=== PATIENT | male | born 1990 | race Caucasian/White ===

== ENCOUNTER 2021-08-13 12:20 | Emergency (ER) | payer BC, SELFPAY ==
[2021-08-13 12:27] VITALS: BP 136/74; PULSE 111; RESP 20; TEMP 36.6; O2SAT 99
--- NOTE | 2021-08-13 15:50 | ED.SKABFB ---
HPI - Skin/Abscess/Foreign Bdy General Chief complaint: Skin/Abscess/Foreign Body <Jose Rolon MD - Last Filed: 08/13/21 18:40> Stated complaint: BOIL L AXILLA <Jose Rolon MD - Last Filed: 08/13/21 18:40> Time Seen by Provider: 08/13/21 14:46 <Jose Rolon MD - Last Filed: 08/13/21 18:40> Source: patient <Jose Rolon MD - Last Filed: 08/13/21 18:40> Mode of arrival: ambulatory <Jose Rolon MD - Last Filed: 08/13/21 18:40> Limitations: no limitations <Jose Rolon MD - Last Filed: 08/13/21 18:40> History of Present Illness HPI narrative: Patient is a 31-year-old male complaining of abscess on his left armpit that started 5 days ago. Patient states that he has a history of abscess in the past due to ingrown hair . Patient denies any fever or chills. <Jose Rolon MD - Last Filed: 08/13/21 18:40> Related Data Home medications: Home Medications Medication Instructions Recorded Confirmed insulin asp prt-insulin aspart 90 unit SUBCUT BID 07/26/19 03/10/21 [Novolog Mix 70-30FlexPen U-100] metformin 1,000 mg PO BID 07/26/19 03/10/21 <Jose Rolon MD - Last Filed: 08/13/21 18:40> Allergies/Adverse reactions: Allergies Allergy/AdvReac Type Severity Reaction Status Date / Time No Known Allergies Allergy Verified 08/13/21 14:38 <Jose Rolon MD - Last Filed: 08/13/21 18:40> Review of Systems Review of Systems: All systems reviewed & are unremarkable except as noted in HPI and below <Jose Rolon MD - Last Filed: 08/13/21 18:40> Constitutional: Constitutional: Denies body ache(s), Denies chills, Denies excessive sweating, Denies fatigue, Denies fever(s), Denies headache(s), Denies lethargy, Denies malaise, Denies weakness and Denies weight loss <Jose Rolon MD - Last Filed: 08/13/21 18:40> Eyes: Eyes: Denies blurry vision, Denies change in vision and Denies loss of vision <Jose Rolon MD - Last Filed: 08/13/21 18:40> ENT: Denies dizziness, Denies ear discharge, Denies headache(s), Denies lip swelling, Denies epistaxis, Denies nasal congestion, Denies neck pain, Denies throat swelling and Denies tongue swelling <Jose Rolon MD - Last Filed: 08/13/21 18:40> Cardiovascular: Cardiovascular: Denies chest pain, Denies chest pain at rest, Denies chest pain with activity, Denies diaphoresis, Denies rapid heart rate, Denies edema, Denies irregular heart rhythm, Denies lightheadedness, Denies palpitations, Denies dyspnea and Denies dyspnea on exertion <Jose Rolon MD - Last Filed: 08/13/21 18:40> Respiratory: Respiratory: Denies chest congestion, Denies cough, Denies hemoptysis, Denies dyspnea and Denies dyspnea on exertion <Jose Rolon MD - Last Filed: 08/13/21 18:40> Gastrointestinal: Gastrointestinal: Denies abdominal pain, Denies melena, Denies hematochezia, Denies diarrhea, Denies nausea, Denies vomiting and Denies hematemesis <Jose Rolon MD - Last Filed: 08/13/21 18:40> Musculoskeletal: Musculoskeletal: Denies abnormal gait, Denies deformity, Denies joint swelling, Denies limited range of motion, Denies neck pain and Denies numbness <Jose Rolon MD - Last Filed: 08/13/21 18:40> Neurologic: Denies Abnormal speech present, Denies abnormal gait, Denies confusion, Denies dizziness, Denies headache(s), Denies focal weakness, Denies loss of vision, Denies numbness, Denies Other visual disturbances, Denies Sensory deficit (Neuro) and Denies weakness <Jose Rolon MD - Last Filed: 08/13/21 18:40> Psychiatric: Psychiatric: Denies confusion, Denies depression, Denies auditory hallucinations, Denies homicidal ideation and Denies suicidal ideation <Jose Rolon MD - Last Filed: 08/13/21 18:40> Endocrine: Endocrine: Denies cold intolerance, Denies excessive sweating, Denies fatigue, Denies heat intolerance and Denies palpitations <Jose Rolon
[2021-08-13] MEDS: KETOROLAC (*BKC) 60 MG/2 ML VIAL IM (17:34)
[2021-08-13] MEDS: CYCLOBENZAPRINE HCL 10 MG TABLET PO (17:34)
[2021-08-13 19:03] VITALS: BP 141/86; PULSE 99; RESP 16; O2SAT 98
== END 2021-08-13 19:04 | disposition home or self-care (01) ==
PROVIDERS: Emergency Provider Emergency Medicine; PCP Physician Assistant
DX: L02.412 Cutaneous abscess of left axilla (principal); E11.9 Type 2 diabetes mellitus without complications; Z79.4 Long term (current) use of insulin; Z79.84 Long term (current) use of oral hypoglycemic drugs
CPT/HCPCS: 10061; 87070; 87147; 87181; 87186; 87205; 96372; 99283; A9270; J1885

== ENCOUNTER 2024-03-21 17:34 | Inpatient (IN) | payer OTHER, SELFPAY ==
[2024-03-21] VITALS (7 sets, daily range): BP systolic 116–143; BP diastolic 55–102; PULSE 106–128; RESP 20–28; O2SAT 78–99
--- NOTE | ~2024-03-21 | XR_ITS ---
EXAMINATION: [id number]_CR DATE: 03/22/2024 13:23 INDICATION: Status post right thoracentesis TECHNIQUE: frontal view of the chest was obtained. COMPARISON: CT dated 03/21/2024 FINDINGS: Mild opacities at the left lung base and in the suprahilar left upper lobe. Right lung is clear with resolution of the prior right pleural effusion. Hazy opacity left lung base could represent a persist ent small left pleural effusion. No pneumothorax. The cardiomediastinal silhouette is within normal l imits for AP technique. IMPRESSION: 1. Resolution of prior right pleural effusion effusion with no pneumothorax post right thoracentesis. 2. Mild opacities at the left left suprahilar region and left lower lung zone consistent with atelect asis and/or pneumonia, possibly a small left pleural effusion. Reviewed, dictated and finalized at location A. IMPRESSION: 1. Resolution of prior right pleural effusion effusion with no pneumothorax pos t right thoracentesis. 2. Mild opacities at the left left suprahilar region and left lower lung zone c onsistent with atelectasis and/or pneumonia, possibly a small left pleural effu yonatan.
--- NOTE | ~2024-03-21 | XR_ITS ---
XR chest 1V portable Ordering provider: Scot Blair History: 33 years Male with . SOA . Comparison: None. FINDINGS: MEDIASTINUM: The cardiac silhouette is moderately enlarged. Congestive lucero. LUNGS: No effusions or pneumothorax. Bilateral interstitial and alveolar opacification suggestive of pulmonary edema. Pneumonia cannot be excluded. OTHER: No free air under the diaphragm. IMPRESSION: Cardiomegaly with cardiac decompensation and pulmonary edema. pneumonia is in the differential. Reviewed, dictated and finalized at location A.
--- NOTE | ~2024-03-21 | CT_ITS ---
CTA chest PE protocol Ordering provider: Beatris Rosen APRN History: 33 years Male with . shortness of breath . Comparison: None. Technique: CT angiogram chest was performed following timed intravenous injection of contrast. Thin s lice axial images and reformatted coronal images were obtained. Three dimensional reformatted images of the chest were also obtained using a [employer] workstation. . Automated exposure control and iterati ve reconstruction technique were employed. The dose-length product was 1035.66 mGy-cm. 100 mL Omnipaq ue 350 was given IV. Findings: PULMONARY ARTERIES: No pulmonary embolus. VISUALIZED THORACIC INLET: Normal. MEDIASTINUM: Aorta/coronary arteries: The thoracic aorta is normal. Heart/other: The heart is not enlarged. Lymph nodes: No mediastinal or hilar adenopathy. LUNGS: Large right pleural effusion with adjacent atelectasis versus pneumonia. Mild to moderate left pleura l effusion with adjacent atelectasis versus pneumonia. No pulmonary nodules or masses. Multiple patch y groundglass opacities are seen bilaterally in the upper lobes suggestive of atypical or viral pneum onia. Follow-up advised. No pneumothorax. VISUALIZED UPPER ABDOMEN: the visualized upper abdomen is normal. MUSCULOSKELETAL: Soft tissues: The superficial soft tissues are normal. Bones: Mild degenerative changes of the spine. IMPRESSION: 1. No pulmonary embolism. 2. Bilateral pleural effusion larger on the right side with adjacent atelectasis. 3. Bilateral groundglass appearing in the upper lobe suggestive of atypical or viral pneumonia. Reviewed, dictated and finalized at location A. IMPRESSION: 1. No pulmonary embolism. 2. Bilateral pleural effusion larger on the right side with adjacent atelectas is. 3. Bilateral groundglass appearing in the upper lobe suggestive of atypical or viral pneumonia.
--- NOTE | ~2024-03-21 | US_ITS ---
EXAMINATION: US thoracentesis DATE: 03/22/2024 13:14 INDICATION: Right pleural effusion TECHNIQUE: The procedure and its risks and benefits were discussed with the patient. Potential risks discussed included bleeding, infection, and pneumothorax. The patient understood the risks and agreed to proceed. The skin was prepped and draped in sterile fashion. 1% lidocaine was used for local anes thesia. Under ultrasound guidance, a 5 Fr catheter with trochar was advanced into the small right ple ural effusion. Fluid was aspirated. The catheter was removed, and a dressing was applied. There were no immediate complications. FINDINGS: Ultrasound images demonstrate a small right pleural effusion and the catheter within the fluid. IMPRESSION: 1. Successful ultrasound-guided thoracentesis yielding 1000 mL of dark lakshmi-colored fluid. Reviewed, dictated and finalized at location A. IMPRESSION: 1. Successful ultrasound-guided thoracentesis yielding 1000 mL of dark lakshmi-c olored fluid.
[2024-03-21] MEDS: MAGNESIUM SULF 2 GM/WATER 50ML 2 GM/50 ML BAG IVPB (17:51)
[2024-03-21] MEDS: methylPREDNISolone SOD SUCC 125 MG VIAL IV PUSH (17:51)
[2024-03-21] MEDS: ALBUTEROL SULFATE NEB 2.5 MG/3 ML INH 15 MG INHALATION (17:54)
[2024-03-21] MEDS: IPRATROPIUM BR 0.02% INH SOLN 0.5 MG/2.5 ML VIAL 1.5 MG INHALATION (17:54)
--- NOTE | 2024-03-21 17:54 | ECG_ITS ---
Test Date: 2024-03-21 17:50:29 Measurements Intervals [place] Rate: 116 P: 68 OK: 146 QRS: 70 QRSD: 98 T: 39 QT: 306 QTc: 426 Interpretive Statements SINUS TACHYCARDIA INCOMPLETE RIGHT BUNDLE BRANCH BLOCK LOW QRS VOLTAGE IN PRECORDIAL LEADS ANTERIOR INFARCT, AGE INDETERMINATE BASELINE WANDER- I, II, III, AVR, AVL, AVF, V1-V6 ABNORMAL ECG No previous ECG available for comparison Electronically Signed On 03-21-2024 19:26:11 CDT by Star Contreras D.O.
[2024-03-21 18:00] LABS: Basophils Absolute Auto 0.1 K/mm3 (0.0-0.1); Basophils Percent Auto 0.7 % (0.2-1.2); Eosinophils Absolute Auto 0.2 K/mm3 (0-0.3); Eosinophils Percent Auto 1.3 % (0-4.4); Hematocrit 43.5 % (42.0-52.0); Immature Granulocyte Absolute 0.07 K/mm3 (0.00-0.031); Immature Granulocyte Percent A 0.5 % (0-0.5); Lymphocytes Absolute Auto 3.73 K/mm3 (0.9-3.2); Lymphocytes Percent Auto 27.1 % (18.3-44.2); Mean Corpuscular HGB Conc 32.2 g/dl (32-36); Mean Corpuscular Hemoglobin 26.4 pg (26-34); Mean Corpuscular Volume 81.9 fl (80-100); Mean Platelet Volume 12.3 fl (7.4-10.4); Monocytes Absolute Auto 0.6 K/mm3 (0.1-0.6); Monocytes Percent Auto 4.4 % (2.6-8.5); Neutrophils Absolute Auto 9.1 K/mm3 (1.3-6.7); Platelet Count Result 329 k/mm3 (150-375); Red Blood Count 5.31 M/mm3 (4.6-6.20); Red Cell Distribution Width 16.1 % (11.5-14.5); White Blood Count 13.8 K/mm3 (4.5-10.0)
[2024-03-21 18:05] LABS: Base Excess ABG -1.8 mEq/l (+/-2.0); Carboxyhemoglobin 2.2 % THb (0-2.0); Fractional Inspired Oxygen 100 %; HCO3 ABG 23.8 mEq/l (22.0-26.0); Methemoglobin ABG 0.1 %THb (0-1.5); Oxygen Content ABG 19.2 %vol (16.0-22.0); Oxygen Saturation ABG 97.9 % (95.0-100.0); PCO2 ABG 43.6 mmHg (35.0-45.0); PO2 ABG 111.4 mmHg (80.0-100.0); PO2 FiO2 Ratio Arterial Blood 1.11 %; Reduced Hemoglobin 1.7 %THb (0-5.0); Total Hemoglobin 14.1 g/dL (12.0-18.0); pH ABG 7.355 (7.350-7.450)
[2024-03-21 18:06] LABS: Device NON-REBREATHER MASK; Modified Allen's Test Pass; Site Drawn RIGHT RADIAL
[2024-03-21 18:11] LABS: Alanine Aminotransferase 21 U/L (6-50); Albumin Level 4.3 g/dL (3.5-5.1); Alkaline Phosphatase 124 U/L (38-126); Anion Gap 14 mmol/L (4-12); Aspartate Amino Transferase 20 U/L (17-59); Bilirubin,Total 1.4 mg/dL (0.2-1.3); Blood Urea Nitrogen 11 mg/dL (9-20); Calcium 9.1 mg/dL (8.4-10.2); Carbon Dioxide 23 mmol/L (22-30); Chloride 100 mmol/L (98-107); Estimated Glomerular Filt Rate > 60; Glucose 400 mg/dL (65-110); Potassium 4.4 mmol/L (3.4-5.0); Sodium 137 mmol/L (137-145)
--- NOTE | 2024-03-21 18:11 | PC.NURSE ---
ekg completed but with a lot of artifact. per MD ekg can be repeated when patient has improved breathing.
[2024-03-21 18:20] LABS: NT Pro B Type Natriuretic Pept 1870 pg/mL (19.9-100)
[2024-03-21 18:21] LABS: Prothrombin Time 13.7 Seconds (11.1-14.7)
[2024-03-21 18:22] LABS: Partial Thromboplastin Time 36.6 Seconds (22.3-36.8)
--- NOTE | 2024-03-21 18:29 | ED.SOB ---
HPI - SOB/Dyspnea General Chief Complaint: Shortness of Breath/Dyspnea <Beatris Rosen APRN - Last Filed: 03/22/24 01:17> Stated Complaint: Dyspnea <Beatrisestuardo Rosen APRN - Last Filed: 03/22/24 01:17> Time Seen by Provider: 03/21/24 17:39 <Beatris Rosen APRN - Last Filed: 03/22/24 01:17> Source: patient and family <Beatrisestuardo Rosen APRN - Last Filed: 03/22/24 01:17> Mode of arrival: ambulatory <Beatris Rosen APRN - Last Filed: 03/22/24 01:17> Limitations: no limitations <Beatris Rosen APRN - Last Filed: 03/22/24 01:17> History of Present Illness HPI Narrative: Patient is a 33-year-old morbidly obese male who presents to the ER with shortness of breath, diaphoresis, and difficulty breathing. He reports he has a history of diabetes and high blood pressure. Patient reports that he was exposed to his mother who had COVID week. He has had increased work of breathing home for the past 3 weeks, but has had worsening dyspnea for the past three days. Patient denies fevers, chest pain, and increased extremity swelling. <Beatris Rosen APRN - Last Filed: 03/22/24 01:17> MD elicited complaint: shortness of breath <Beatris Rosen APRN - Last Filed: 03/22/24 01:17> Related Data Home Medications: Home Medications Medication Instructions Recorded Confirmed metformin 500 mg tablet,extended 1,000 mg PO BID 07/26/19 03/22/24 release 24 hr Humulin R U-500 (Conc) Kwikpen 500 unit subcut BID 03/22/24 03/22/24 amlodipine 10 mg tablet 10 mg PO HS 03/22/24 03/22/24 lisinopril 40 mg tablet 40 mg PO HS 03/22/24 03/22/24 spironolactone 100 mg tablet 100 mg PO HS 03/22/24 03/22/24 <Beatris Rosen APRN - Last Filed: 03/22/24 01:17> Allergies/Adverse Reactions: Allergies Allergy/AdvReac Type Severity Reaction Status Date / Time No Known Allergies Allergy Verified 11/18/23 07:57 <Beatris Rosen APRN - Last Filed: 03/22/24 01:17> Review of Systems Review of Systems: All systems reviewed & are unremarkable except as noted in HPI and below <Beatris Rosen APRN - Last Filed: 03/22/24 01:17> [facility], [facility] Past Medical History Medical History: Medical History (Updated 03/22/24 @ 01:51 by Sola Branham MD) Diabetes Laryngitis <Beatris Rosen APRN - Last Filed: 03/22/24 01:17> Surgical History Surgical History: Surgical History No history of previous surgery <Beatris Rosen APRN - Last Filed: 03/22/24 01:17> Family History Family History: Family History Mother Patient's mother is in good health Father Patient's father is in good health Sibling Patient's sister is in good health Patient's brother is in good health <Beatris Rosen APRN - Last Filed: 03/22/24 01:17> Social History Social History: Social History Smoking status: Never smoker Second hand tobacco smoke exposure: No Alcohol intake: never Substance use: never Do You Feel Safe in your Home?: Yes Lack of Transportation: No Lack of Food: Never True Current Housing: I Have Housing Concerned About Future Housing: No Difficulty Paying Gas/Electric Bills: No Difficulty Paying for Meds: No Currently Unemployed: No Education: High School Diploma/GED Difficulty w/ Childcare or Family Care: No Spiritual care concerns: No <Beatris Rosen APRN - Last Filed: 03/22/24 01:17> Exam Narrative: GENERAL: Ill appearing, morbidly obese, in acute distress. Diaphoretic. HEAD: Normocephalic, atraumatic. RESPIRATORY: Airway patent, respirations labored, very little air movement upon auscultation. Positive for wheezing in all four quadrants. CARDIOVASCULAR: Tachycardic and regular rhythm without murmurs, rubs, or gallops. Peripheral pulses 2
[2024-03-21 18:30] LABS: Troponin I 0.052 ng/mL (0.000-0.034)
[2024-03-21 18:34] LABS: Lactic Acid Reflex 1.4 mmol/L (0.7-2.0)
[2024-03-21 18:59] LABS: Influenza A QL RT-PCR Negative (Negative); Influenza B QL RT-PCR Negative (Negative); RSV RNA, RT-PCR Negative (Negative); SARS-CoV-2 RNA PCR Negative (Negative)
[2024-03-21] MEDS: FUROSEMIDE INJ 40 MG/4 ML VIAL IV PUSH (19:11)
[2024-03-21] MEDS: INSULIN HUMAN REGULAR (*BKC) 100 UNITS/ML 80 UNITS SUB-Q (23:25)
[2024-03-21 23:30] LABS: Glucose Point of Care > 500 mg/dl (65-105)
[2024-03-22] VITALS (21 sets, daily range): BP systolic 106–150; BP diastolic 63–99; PULSE 92–107; RESP 15–28; TEMP 36.6–40.5; O2SAT 95–100; BMI 59.1
[2024-03-22] MEDS: SODIUM CHLORIDE 0.9% IV 1,000 ML 500 ML IV CONT (00:14)
[2024-03-22 00:25] LABS: Glucose Point of Care > 500 mg/dl (65-105)
[2024-03-22] MEDS: INSULIN HUMAN REGULAR (*BKC) 100 UNITS/ML 10 UNITS IV PUSH (00:28)
[2024-03-22 00:54] LABS: Anion Gap 15 mmol/L (4-12); Blood Urea Nitrogen 14 mg/dL (9-20); Calcium 7.4 mg/dL (8.4-10.2); Carbon Dioxide 17 mmol/L (22-30); Chloride 103 mmol/L (98-107); Estimated Glomerular Filt Rate > 60; Glucose 505 mg/dL (65-110); Potassium 4.4 mmol/L (3.4-5.0); Sodium 135 mmol/L (137-145)
[2024-03-22] MEDS: AZITHROMYCIN 500 MG/NS 250 ML 500 MG/250 ML BAG 250 MG IVPB (01:09)
--- NOTE | 2024-03-22 01:44 | PM.IMHP ---
H&P: HPI History of Present Illness Date/Time: 03/22/24 01:44 Chief Complaint: Shortness of breath for 7 days Narrative: Mr. Almazan is a pleasant 33-year-old male accompanied by his mother and . 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 The patient comes in complaining of progressive shortness of breath for 7 days which became unbearable on day of admission 03/21/2024. The patient carries diagnoses of insulin-dependent diabetes mellitus, morbid obesity, hypertension, MICHAEL compliant with CPAP. About a month prior to admission the patient had shortness of breath and cough. Some family members were positive for COVID. He did use an at home test and it was negative. His symptoms resolved and then 7 days prior to admission he became short of breath again with yellow/brown sputum. It has progressively become worse and he has noticed that he is huffing and puffing after walking short distance. For a long time he has used 2 pillows to sleep and is slightly incline. He is compliant with his CPAP. He has a little bit of leg edema but that has always been the usual for him. He has not noticed a large amount of weight gain in the past 6 months. He is considering bariatric surgery. He denies any illicit drug use, energy drinks, smoking, he rarely uses alcohol only drinks on vacation. ER evaluation demonstrated a BP of 143/55, heart rate of 106, respiratory rate 20. He was placed on non-rebreather and then BiPAP at a setting of 16/8 with FiO2 of 30%. CTA of the chest demonstrated no pulmonary embolism, bilateral ground grass appearing opacities in the upper lobes, bilateral pleural effusions greater on the right side. WBC 13.8, INR 1.0, ABG demonstrated pH is 7.355, PO2 111 on non-rebreather at 15 liters/minute, pCO2 43.6, bicarb 23.8, anion gap 14, glucose 400, serum creatinine 1.0, troponin 0.052-0.040, BNP 1 870, beta hydroxybutyrate 1.10, quad viral screen negative. Apparently the patient was not wheezing however he appeared tight per the ER doctor's exam therefore he was given Solu-Medrol 125 mg IV x1 along with DuoNeb, magnesium 2 g piggyback, Lasix 40 mg IV x1, regular insulin 80 units subQ x1, sodium chloride 1 L bolus, 10 units insulin IV, ceftriaxone 1 g x 1, azithromycin 500 mg. Reportedly the patient had good urine output, his breathing did improve. However on repeat BMP is glucose was 505 with an anion gap increasing to 15 and bicarb dropping from 23 to 17. Review of Systems Review of Systems: All systems reviewed & are unremarkable except as noted in HPI and below (Subjective) [facility] Past Medical History Medical History (Updated 03/22/24 @ 01:51 by Sola Branham MD) Diabetes Laryngitis Surgical History Surgical History No history of previous surgery Family History Family History Mother Patient's mother is in good health Father Patient's father is in good health Sibling Patient's sister is in good health Patient's brother is in good health Social History Social History Smoking status: Never smoker Second hand tobacco smoke exposure: No Alcohol intake: never Substance use: unknown Lack of Transportation: No Lack of Food: Never True Current Housing: I Have Housing Concerned About Future Housing: No Difficulty Paying Gas/Electric Bills: No Difficulty Paying for Meds: No Currently Unemployed: No Education: High School Diploma/GED Difficulty w/ Childcare or Family Care: No Meds Home Medications and Allergies Home Medications Medication Instructions Recorded Confirmed Type insulin aspar prot-insulin aspart 90 unit subcut BID 07/26/19 11/18/23 History 100 unit/mL (70-30) subcutaneous pen (Novolog Mix 70-30FlexPen U-100) metformin 500 mg tablet,extended 1,000 mg PO BID 07/26/19
[2024-03-22] MEDS: INSULIN HUMAN REGULAR (*BKC) 100 UNITS in SODIUM CHLORIDE 0.9% IV 99 ML 19.29 UNITS IV CONT (02:23)
[2024-03-22 02:36] LABS: Glucose Point of Care > 500 mg/dl (65-105)
--- NOTE | 2024-03-22 02:38 | PC.NURSE ---
Tiffanie from ED called report on patient.
--- NOTE | 2024-03-22 03:08 | ADMGEN ---
This patient, Yuniel Almazan, was admitted to Intensive Care Unit-9. Patient/family oriented to hospital policies and general routines including ID bracelet, bed and alarms, visiting hours, pain management, procedures, bathroom and other care routines, personal items, smoking policy, room service/diet, and visiting hours. Information on how to activate the Rapid Response Team has been discussed. Patient/Family are encouraged to report perceived risks to care and to ask questions if they do not understand what they are told or what they should do.
[2024-03-22 03:19] LABS: Glucose Point of Care > 500 mg/dl (65-105)
[2024-03-22] MEDS: SODIUM CHLORIDE 0.9% IV 1,000 ML 150 ML IV CONT (03:30)
[2024-03-22 04:02] LABS: Basophils Percent Auto 0.1 % (0.2-1.2); Hematocrit 39.5 % (42.0-52.0); Hemoglobin 12.6 g/dL (14.0-18.0); Immature Granulocyte Absolute 0.04 K/mm3 (0.00-0.031); Immature Granulocyte Percent A 0.4 % (0-0.5); Lymphocytes Absolute Auto 0.67 K/mm3 (0.9-3.2); Lymphocytes Percent Auto 7.4 % (18.3-44.2); Mean Corpuscular HGB Conc 31.9 g/dl (32-36); Mean Corpuscular Hemoglobin 25.9 pg (26-34); Mean Corpuscular Volume 81.3 fl (80-100); Mean Platelet Volume 12.3 fl (7.4-10.4); Monocytes Absolute Auto 0.1 K/mm3 (0.1-0.6); Monocytes Percent Auto 0.8 % (2.6-8.5); Neutrophils Absolute Auto 8.2 K/mm3 (1.3-6.7); Neutrophils Percent Auto 91.3 % (45.5-73.1); Platelet Count Result 265 k/mm3 (150-375); Red Blood Count 4.86 M/mm3 (4.6-6.20); Red Cell Distribution Width 15.9 % (11.5-14.5)
[2024-03-22 04:14] LABS: Lactic Acid Reflex 1.9 mmol/L (0.7-2.0)
[2024-03-22 04:20] LABS: Alanine Aminotransferase 23 U/L (6-50); Albumin Level 4.3 g/dL (3.5-5.1); Alkaline Phosphatase 113 U/L (38-126); Anion Gap 15 mmol/L (4-12); Aspartate Amino Transferase 18 U/L (17-59); Bilirubin,Total 1.2 mg/dL (0.2-1.3); Blood Urea Nitrogen 18 mg/dL (9-20); Calcium 8.9 mg/dL (8.4-10.2); Carbon Dioxide 22 mmol/L (22-30); Chloride 98 mmol/L (98-107); Estimated Glomerular Filt Rate > 60; Glucose 548 mg/dL (65-110); Magnesium 2.3 mg/dL (1.6-2.3); Phosphorus 3.4 mg/dL (2.5-4.5); Potassium 4.9 mmol/L (3.4-5.0); Sodium 135 mmol/L (137-145)
[2024-03-22 04:21] LABS: Anion Gap 15 mmol/L (4-12); Blood Urea Nitrogen 18 mg/dL (9-20); Calcium 8.9 mg/dL (8.4-10.2); Carbon Dioxide 21 mmol/L (22-30); Chloride 98 mmol/L (98-107); Estimated Glomerular Filt Rate > 60; Glucose 545 mg/dL (65-110); Sodium 134 mmol/L (137-145)
[2024-03-22 04:24] LABS: Hemoglobin A1C 9.8 % (<5.7)
[2024-03-22 04:34] LABS: Lactate Dehydrogenase 205 U/L (120-246)
[2024-03-22 05:15] LABS: Procalcitonin 0.3 ng/mL
[2024-03-22 05:18] LABS: Glucose Point of Care 469 mg/dl (65-105)
[2024-03-22 05:35] LABS: Alveolar/Arterial O2 Gradient 68.2 mmHg; Base Excess ABG -1.1 mEq/l (+/-2.0); Carboxyhemoglobin 1.8 % THb (0-2.0); Fractional Inspired Oxygen 30 %; HCO3 ABG 22.6 mEq/l (22.0-26.0); Methemoglobin ABG 0.1 %THb (0-1.5); Oxygen Content ABG 18.2 %vol (16.0-22.0); Oxyhemoglobin 96.4 % THb (90.0-100.0); PCO2 ABG 34.6 mmHg (35.0-45.0); Reduced Hemoglobin 1.7 %THb (0-5.0); Total Hemoglobin 13.3 g/dL (12.0-18.0); pH ABG 7.432 (7.350-7.450)
[2024-03-22 05:36] LABS: Device BIPAP; Modified Allen's Test Pass; Site Drawn RIGHT RADIAL
[2024-03-22 05:37] LABS: Expiratory Pressure 6 cmH2O; Inspiratory Pressure 12 cmH2O
[2024-03-22 05:38] LABS: Add Urine Microscopic? YES; Appearance Urine Clear (Clear); Bacteria Urine None Seen /hpf; Bilirubin Urine Negative (Negative); Blood Urine Negative (Negative); Color Urine Yellow (Yellow); Glucose Urine UA 3+ mg/dL (Negative); Ketones Urine Trace mg/dL (Negative); Leukocyte Esterase Ur Negative LEU/UL (Negative); Need Manual Microscopic Reviewed; Nitrate Urine Negative (Negative); Non Pathogenic Casts 0-2; Protein Urine 2+ mg/dL (Negative); RBC Urine 0-2 /hpf (0-2); Specific Grav Ur 1.036 (1.001-1.035); Squamous Epithelial Cell Urine None Seen /hpf (Few); Urobilinogen Urine 0.2 mg/dL (<2.0); WBC Urine 0-5 /hpf (0-3); pH Urine 5.5 (5.0-9.0)
[2024-03-22] MEDS: INSULIN HUMAN REGULAR (*BKC) 100 UNITS in SODIUM CHLORIDE 0.9% IV 99 ML 35 UNITS IV CONT (06:24)
[2024-03-22] MEDS: HEPARIN SODIUM 5,000 UNITS/ML VIAL 5000 UNITS SUB-Q ×2 (06:26→21:13)
[2024-03-22] MEDS: LABETALOL HCL 100 MG TABLET 200 MG PO ×2 (06:26→18:23)
[2024-03-22 06:35] LABS: MRSA (PCR) NOT DETECTED (NOT DETECTE)
[2024-03-22 06:36] LABS: Glucose Point of Care 355 mg/dl (65-105)
[2024-03-22 07:24] LABS: Glucose Point of Care 321 mg/dl (65-105)
[2024-03-22 08:12] LABS: Glucose Point of Care 266 mg/dl (65-105)
[2024-03-22] MEDS: FAMOTIDINE 20 MG/2 ML VIAL IV PUSH ×2 (08:18→21:13)
--- NOTE | 2024-03-22 08:19 | WPDCNINT ---
Assessment and Plan Assessment and plan (1) Acute hypoxemic respiratory failure: Code(s): J96.01 - Acute respiratory failure with hypoxia Status: Acute Assessment and Plan: Patient presented with shortness of breath and was found to be hypoxic. CT scan IMPRESSION: 1. No pulmonary embolism. 2. Bilateral pleural effusion larger on the right side with adjacent atelectasis. 3. Bilateral groundglass appearing in the upper lobe suggestive of atypical or viral pneumonia. Although patient had elevated WBC he had low procalcitonin level and is afebrile making pneumonia to be a less likely etiology PCR for RSV COVID and flu were negative Bilateral lower extremity edema, elevated BNP, bilateral pleural effusions suggest CHF to be the etiology Discontinue IV fluids and continue diuresis Echo ordered Check urine Legionella and pneumococcal antigen Cultures have been sent and are pending Continue empiric Rocephin and azithromycin for now Supplemental oxygen Patient on NIPPV 12/6 30% FiO2. Will transition to nasal cannula if tolerates. She (2) DKA (diabetic ketoacidosis): Code(s): E11.10 - Type 2 diabetes mellitus with ketoacidosis without coma Status: Acute Assessment and Plan: Continue insulin infusion. Will discontinue IV fluids in light of overall volume overload and congestive heart failure. Monitor electrolytes. (3) Congestive heart failure: Code(s): I50.9 - Heart failure, unspecified Status: Acute Assessment and Plan: Bilateral pleural effusion, pulmonary edema, lower extremity edema, elevated BNP are all suggest congestive heart failure Echo ordered DC IV fluids Continue diuretics (4) Community acquired pneumonia: Code(s): J18.9 - Pneumonia, unspecified organism Status: Acute Assessment and Plan: See above (5) Diabetes: Qualifiers: Diabetes mellitus complication status: without complication Diabetes mellitus residential insulin use: with lobsterman use Diabetes mellitus type: type 2 Qualified Code(s): E11.9 - Type 2 diabetes mellitus without complications; Z79.4 - manager intermediate (current) use of insulin Code(s): E11.9 - Type 2 diabetes mellitus without complications Status: Acute Assessment and Plan: Currently in DKA. Management as above Check TSH (6) Pleural effusion: Code(s): J90 - Pleural effusion, not elsewhere classified Status: Acute Assessment and Plan: Thoracentesis ordered by internal medicine physician. And is pending Continue Diuresis (7) Obstructive sleep apnea: Code(s): G47.33 - Obstructive sleep apnea (adult) (pediatric) Status: Acute Assessment and Plan: NIPPV ordered Plan DVT prophylaxis -heparin Stress ulcer prophylaxis -Pepcid Nutrition - npo Code Status - Full Code Total Critical Care Time - 32 minutes Due to a high probability of clinically significant, life threatening deterioration, the patient required my highest level of preparedness to intervene emergently and I personally spent this critical care time directly and personally managing the patient. This critical care time included obtaining a history; examining the patient; pulse oximetry; ordering and review of studies; arranging urgent treatment with development of a management plan; evaluation of patient's response to treatment; frequent reassessment; and discussions with other providers. It was exclusive of separately billable procedures and treating other patients and teaching time. Please see Assessment and Plan section and the rest of the note for further information on patient assessment and treatment Caddy Consult Note Consult date: 03/22/24 Reason for consult: DKA, congestive heart failure HPI: Yuniel Almazan is a 33 year old morbidly obese male Mr. Almazan is a pleasant 33-year-old male with past medical history of insulin-dependent diabetes mellitus, morbid obesi
[2024-03-22 08:47] LABS: Anion Gap 12 mmol/L (4-12); Blood Urea Nitrogen 20 mg/dL (9-20); Calcium 8.9 mg/dL (8.4-10.2); Carbon Dioxide 24 mmol/L (22-30); Chloride 103 mmol/L (98-107); Estimated CRCL calculation 140 ml/min; Estimated Glomerular Filt Rate > 60; Glucose 231 mg/dL (65-110); Potassium 4.3 mmol/L (3.4-5.0); Sodium 139 mmol/L (137-145)
[2024-03-22 09:05] LABS: Troponin I 0.049 ng/mL (0.000-0.034)
[2024-03-22 09:19] LABS: Glucose Point of Care 154 mg/dl (65-105)
[2024-03-22 09:21] LABS: Thyroid Stimulating Hormone Reflex 0.501 uIU/mL (0.465-4.68)
[2024-03-22] MEDS: INSULIN HUMAN REGULAR (*BKC) 100 UNITS in SODIUM CHLORIDE 0.9% IV 99 ML 28.5 UNITS IV CONT (09:21)
[2024-03-22] MEDS: FUROSEMIDE INJ 40 MG/4 ML VIAL IV PUSH ×2 (09:23→18:23)
[2024-03-22 10:19] LABS: Glucose Point of Care 94 mg/dl (65-105)
--- NOTE | 2024-03-22 11:04 | PM.CNCAR ---
Assessment and Plan Assessment and plan (1) Acute congestive heart failure: Code(s): I50.9 - Heart failure, unspecified Status: Acute Assessment and Plan: Agree with IV Lasix 40mg BID for now. Please monitor strict I/Os. Echocardiogram ordered and pending. (2) Acute hypoxemic respiratory failure: Code(s): J96.01 - Acute respiratory failure with hypoxia Status: Acute Assessment and Plan: Continue IV Lasix. Wean off oxygen as tolerated. On antibiotics as well for possible pneumonia. (3) DKA (diabetic ketoacidosis): Code(s): E11.10 - Type 2 diabetes mellitus with ketoacidosis without coma Status: Acute Assessment and Plan: Management as per ICU team. (4) Community acquired pneumonia: Code(s): J18.9 - Pneumonia, unspecified organism Status: Acute Assessment and Plan: On antibiotics for possible pneumonia. (5) Hypertension: Qualifiers: Hypertension type: essential hypertension Qualified Code(s): I10 - Essential (primary) hypertension Code(s): I10 - Essential (primary) hypertension Status: Acute Assessment and Plan: Stable (6) Diabetes: Qualifiers: Diabetes mellitus type: type 2 Diabetes mellitus halfway insulin use: with halfway use Diabetes mellitus complication status: without complication Qualified Code(s): E11.9 - Type 2 diabetes mellitus without complications; Z79.4 - assisted (current) use of insulin Code(s): E11.9 - Type 2 diabetes mellitus without complications Status: Acute Assessment and Plan: Management as per primary team. (7) Obstructive sleep apnea: Code(s): G47.33 - Obstructive sleep apnea (adult) (pediatric) Status: Acute Assessment and Plan: On CPAP at home. Plan Recommendations and plan discussed with Wire Harness Design Engineer. History of Present Illness History of Present Illness Consult date/time: 03/22/24 11:04 Requesting physician: Sola Branham MD Consult reason: congestive heart failure Reason For Visit: Congestive Heart Failure/Pneumonia/Elevated Trop Narrative: We are consulted for congestive heart failure. This is a 33 year old male with insulin-dependent diabetes mellitus, morbid obesity, hypertension, MICHAEL on CPAP who presented to [facility] for progressive shortness of breath. In the ED, he was hypoxic, and was requiring non-rebreather and then BIPAP. Found to be in DKA on admission as well. Workup shows troponins of 0.052, 0.040, 0.049. NT pro BNP of 1870 CXR on admission with cardiomegaly with cardiac decompensation and pulmonary edema. Pneumonia is on the differential. Chest CTA shows no pulmonary embolism, bilateral pleural effusions larger on the right side with adjacent atelectasis. Bilateral groundglass appearing in the upper lobe suggestive of atypical or viral pneumonia. EKG with sinus tachycardia, incomplete right bundle branch block, baseline artifact. Review of Systems Review of Systems: All systems reviewed & are unremarkable except as noted in HPI and below (HPI) [facility] Past Medical History Medical History (Updated 03/22/24 @ 11:10 by Mary Santillan MD) Diabetes Laryngitis Surgical History Surgical History No history of previous surgery Family History Family History Mother Patient's mother is in good health Father Patient's father is in good health Sibling Patient's sister is in good health Patient's brother is in good health Social History Social History Smoking status: Never smoker Second hand tobacco smoke exposure: No Alcohol intake: never Substance use: never Do You Feel Safe in your Home?: Yes Lack of Transportation: No Lack of Food: Never True Current Housing: I Have Housing Concerned About Future Housing: No Diffic
[2024-03-22 11:39] LABS: Glucose Point of Care 98 mg/dl (65-105)
[2024-03-22 12:37] LABS: Glucose Point of Care 138 mg/dl (65-105)
[2024-03-22 12:43] LABS: Anion Gap 11 mmol/L (4-12); Blood Urea Nitrogen 21 mg/dL (9-20); Calcium 9.4 mg/dL (8.4-10.2); Carbon Dioxide 26 mmol/L (22-30); Chloride 104 mmol/L (98-107); Estimated CRCL calculation 153 ml/min; Estimated Glomerular Filt Rate > 60; Glucose 120 mg/dL (65-110); Potassium 4.6 mmol/L (3.4-5.0); Sodium 141 mmol/L (137-145)
--- NOTE | 2024-03-22 12:44 | PM.IMPN ---
Progress Note: A&P Assessment and Plan (1) Acute hypoxemic respiratory failure: Code(s): J96.01 - Acute respiratory failure with hypoxia Status: Acute Assessment and Plan: Patient presented with shortness of breath and was found to be hypoxic. CT scan IMPRESSION: 1. No pulmonary embolism. 2. Bilateral pleural effusion larger on the right side with adjacent atelectasis. 3. Bilateral groundglass appearing in the upper lobe suggestive of atypical or viral pneumonia. Although patient had elevated WBC he had low procalcitonin level and is afebrile making pneumonia to be a less likely etiology PCR for RSV COVID and flu were negative Bilateral lower extremity edema, elevated BNP, bilateral pleural effusions suggest CHF to be the etiology Discontinue IV fluids and continue diuresis Echo ordered Check urine Legionella and pneumococcal antigen Cultures have been sent and are pending Continue empiric Rocephin and azithromycin for now Supplemental oxygen Patient on NIPPV / 30% FiO2. Will transition to nasal cannula if tolerates. (2) DKA (diabetic ketoacidosis): Code(s): E11.10 - Type 2 diabetes mellitus with ketoacidosis without coma Status: Acute Assessment and Plan: dc insulin infusion. Will discontinue IV fluids in light of overall volume overload and congestive heart failure. Monitor electrolytes.Transition to home regimen when DKA resolved (3) Congestive heart failure: Code(s): I50.9 - Heart failure, unspecified Status: Deleted Assessment and Plan: Bilateral pleural effusion, pulmonary edema, lower extremity edema, elevated BNP are all suggest congestive heart failure Echo ordered DC IV fluids Continue diuretics (4) Community acquired pneumonia: Code(s): J18.9 - Pneumonia, unspecified organism Status: Acute Assessment and Plan: See above (5) Diabetes: Qualifiers: Diabetes mellitus complication status: without complication Diabetes mellitus terminal superintendent insulin use: with group home use Diabetes mellitus type: type 2 Qualified Code(s): E11.9 - Type 2 diabetes mellitus without complications; Z79.4 - extermination supervisor (current) use of insulin Code(s): E11.9 - Type 2 diabetes mellitus without complications Status: Acute Assessment and Plan: Currently in DKA. Management as above Check TSH (6) Pleural effusion: Code(s): J90 - Pleural effusion, not elsewhere classified Status: Acute Assessment and Plan: Thoracentesis ordered by internal medicine physician. And is pending Continue Diuresis (7) Obstructive sleep apnea: Code(s): G47.33 - Obstructive sleep apnea (adult) (pediatric) Status: Acute Assessment and Plan: NIPPV ordered Subjective Date/time seen: 03/22/24 12:44 Interval history: patient was evaluated at the bedside. Patient reports a past medical history of type 2 diabetes mellitus and high blood pressure. Family history of early coronary artery disease with his brother diagnosed of CAD the age of 38 and father at the age of 40. 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 Patient was not feeling well for past 6 weeks he attributed the sickness due to pneumonia /flu. He took [id number] medication robutussin. He didnt better and sought medical attention on 03/21 due to severe sob. initially was admitted because of CHF exacerbation and community-acquired pneumonia but in the course of hospitalization patient is also having diagnosis of DKA. Currently his anion gap is closed and insulin infusions off. In home he uses Humulin R 500 80U TID. Cardiology evaluated the patient agree with Lasix 40 mg b.i.d. for now and pending echocardiogram.Workup shows troponins of 0.052, 0.040, 0.049.NT pro BNP of 1870.CXR on admission with cardiomegaly with cardiac decompensation and pulmonary edema.CT chest shows Bilateral pleural effusion larger on the right side with adjacent atelectasis. Patient u
[2024-03-22] MEDS: INSULIN HUMAN ISOPHAN/REGULAR 70/30 (*BKC) 100 UNITS/ML 70 UNITS SUB-Q (13:35)
[2024-03-22 14:22] LABS: Appearance Pleural Fluid Bloody (Clear); Color Pleural Fluid Red (Colorless); Pleural fluid source Pleural fluid
[2024-03-22 14:26] LABS: Lymphocytes Pleural Fluid 82 %; Macrophages Pleural Fluid 12 %; Monocytes Pleural Fluid 2 %; Neutrophils Pleural Fluid 3 % (0-25); Other Cells Pleural Fluid 1 %; RBC Pleural Fluid 22000 /uL (0-10000)
[2024-03-22 14:35] LABS: Nucleated Cell Pleural Fluid 907 /uL (0-1000)
[2024-03-22 14:45] LABS: pH Pleural Fluid > 0.000 (7.210-7.500)
--- NOTE | 2024-03-22 15:38 | PC.NURSE ---
This patient, Yuniel Almazan, was received from ICU on 03/22/24 at 1538. Patient/family oriented to unit policies and routines. Report received from Alyce FUNEZ
[2024-03-22 17:05] LABS: Anion Gap 5 mmol/L (4-12); Blood Urea Nitrogen 22 mg/dL (9-20); Calcium 8.7 mg/dL (8.4-10.2); Carbon Dioxide 29 mmol/L (22-30); Chloride 101 mmol/L (98-107); Estimated CRCL calculation 119 ml/min; Estimated Glomerular Filt Rate > 60; Glucose 195 mg/dL (65-110); Potassium 4.1 mmol/L (3.4-5.0); Sodium 135 mmol/L (137-145)
[2024-03-22 17:13] LABS: Glucose Point of Care 195 mg/dl (65-105)
[2024-03-22 20:37] LABS: Glucose Point of Care 184 mg/dl (65-105)
[2024-03-22 21:24] LABS: Anion Gap 10 mmol/L (4-12); Blood Urea Nitrogen 23 mg/dL (9-20); Calcium 8.6 mg/dL (8.4-10.2); Carbon Dioxide 30 mmol/L (22-30); Chloride 97 mmol/L (98-107); Estimated CRCL calculation 119 ml/min; Estimated Glomerular Filt Rate > 60; Glucose 189 mg/dL (65-110); Potassium 3.6 mmol/L (3.4-5.0); Sodium 137 mmol/L (137-145)
[2024-03-23] VITALS (12 sets, daily range): BP systolic 140–143; BP diastolic 76–82; PULSE 80–99; RESP 12–18; TEMP 36.3–36.4; O2SAT 97–100; BMI 58.9
--- NOTE | 2024-03-23 | ECHO_ITS ---
Patient Info Name: Yuniel Almazan Age: 33 years : 1990 Gender: Male Ht: 70 in Wt: 425 lbs BSA: 3.20 m2 HR: 99 bpm BP: 143 / 81 mmHg Technical Quality: Poor Exam Date: 03/23/2024 2:21 PM Exam Location: Echo Lab Patient Status: Inpatient Admit Date: 03/23/2024 Staff Ordering Physician: Sola Branham MD [employer] Consultant: Bob Jewell RDCS Attending Provider: Sola Branham MD Exam Type: CA echo dop color flow w con Study Info Indications I50.9 - Heart failure, unspecified Complete two-dimensional, color flow and Doppler transthoracic echocardiogram is performed with contrast to opacify the left ventricle and to improve the deliniation of the left ventricle endocardial borders. Contrast/Agitated Saline Contrast/Ag. Saline: Definity Amount: 3.00 ml Existing IV Access: Yes IV Access Condition: patent with no signs of infiltration Reason for Poor Study: poor patient cooperation Summary 1. Technically difficult study with limited views. 2. Left ventricular chamber dimension is mildly enlarged. 3. Left ventricular systolic function is severely reduced, estimated at 25-30%. 4. Right ventricular systolic function is normal. 5. There is mild tricuspid valve regurgitation. Left Ventricle Left ventricular chamber dimension is mildly enlarged. Left ventricular systolic function is severely reduced, estimated at 25-30%. There is no increased left ventricular wall thickness. Right Ventricle Right ventricular chamber dimension is normal. Right ventricular systolic function is normal. Left Atria Left atrial chamber dimension is normal. Right Atria Right atrial chamber dimension is normal. Atrial Septum Intact interatrial septum visualized by color flow imaging. Aortic Valve The aortic valve is probable trileaflet. There is no aortic valve stenosis. There is no aortic valve regurgitation. Pulmonic Valve The pulmonic valve is not well visualized. There is trace pulmonic regurgitation. Mitral Valve There is trace mitral valve regurgitation. Tricuspid Valve There is mild tricuspid valve regurgitation. Pericardium/Pleural The pericardium appears epicardial fat pad. There is no pericardial effusion. Inferior Vena Cava Inferior vena cava is not well visualized. Aorta The aortic root size at the sinus of Valsalva is normal. Left Ventricular Outflow Tract Name Value Normal LVOT 2D LVOT Diameter 2.19 cm LVOT Doppler LVOT Peak Gradient 3 mmHg LVOT Mean Gradient 1 mmHg LVOT VTI 10.42 cm LVOT VTI/AV VTI Ratio 0.64 LVOT Stroke Volume 39.28 ml LVOT CO 3.66 l/min LVOT CI 1.14 L/min/m2 Pulmonic Valve Name Value Normal PV Doppler PV Peak Gradient 3 mmHg
[2024-03-23] MEDS: AZITHROMYCIN 500 MG/NS 250 ML 500 MG/250 ML BAG 250 MG IVPB (00:34)
[2024-03-23 00:46] LABS: Anion Gap 10 mmol/L (4-12); Blood Urea Nitrogen 22 mg/dL (9-20); Calcium 8.6 mg/dL (8.4-10.2); Carbon Dioxide 29 mmol/L (22-30); Chloride 98 mmol/L (98-107); Estimated CRCL calculation 129 ml/min; Estimated Glomerular Filt Rate > 60; Glucose 212 mg/dL (65-110); Potassium 3.5 mmol/L (3.4-5.0); Sodium 137 mmol/L (137-145)
[2024-03-23] MEDS: LABETALOL HCL 100 MG TABLET 200 MG PO ×2 (05:21→17:05)
[2024-03-23] MEDS: HEPARIN SODIUM 5,000 UNITS/ML VIAL 5000 UNITS SUB-Q ×3 (05:21→20:19)
[2024-03-23 06:11] LABS: Hematocrit 37.4 % (42.0-52.0); Hemoglobin 11.5 g/dL (14.0-18.0); Mean Corpuscular HGB Conc 30.7 g/dl (32-36); Mean Corpuscular Hemoglobin 25.8 pg (26-34); Mean Corpuscular Volume 83.9 fl (80-100); Mean Platelet Volume 12.3 fl (7.4-10.4); Platelet Count Result 241 k/mm3 (150-375); Red Blood Count 4.46 M/mm3 (4.6-6.20); Red Cell Distribution Width 16.2 % (11.5-14.5); White Blood Count 9.4 K/mm3 (4.5-10.0)
[2024-03-23 06:35] LABS: Alanine Aminotransferase 19 U/L (6-50); Albumin Level 3.4 g/dL (3.5-5.1); Alkaline Phosphatase 89 U/L (38-126); Anion Gap 7 mmol/L (4-12); Aspartate Amino Transferase 23 U/L (17-59); Bilirubin,Total 0.7 mg/dL (0.2-1.3); Blood Urea Nitrogen 22 mg/dL (9-20); Calcium 8.3 mg/dL (8.4-10.2); Carbon Dioxide 31 mmol/L (22-30); Chloride 99 mmol/L (98-107); Estimated CRCL calculation 128 ml/min; Estimated Glomerular Filt Rate > 60; Glucose 235 mg/dL (65-110); Magnesium 2.1 mg/dL (1.6-2.3); Phosphorus 4.5 mg/dL (2.5-4.5); Potassium 3.9 mmol/L (3.4-5.0); Sodium 137 mmol/L (137-145)
--- NOTE | 2024-03-23 07:33 | PM.IMPN ---
Progress Note: A&P Assessment and Plan (1) Acute hypoxemic respiratory failure: Code(s): J96.01 - Acute respiratory failure with hypoxia Status: Acute Assessment and Plan: Patient presented with shortness of breath and was found to be hypoxic. CT scan IMPRESSION: 1. No pulmonary embolism. 2. Bilateral pleural effusion larger on the right side with adjacent atelectasis. 3. Bilateral groundglass appearing in the upper lobe suggestive of atypical or viral pneumonia. Although patient had elevated WBC he had low procalcitonin level and is afebrile making pneumonia to be a less likely etiology PCR for RSV COVID and flu were negative Bilateral lower extremity edema, elevated BNP, bilateral pleural effusions suggest CHF to be the etiology Discontinue IV fluids and continue diuresis Echo ordered Check urine Legionella and pneumococcal antigen Cultures have been sent and are pending Continue empiric Rocephin and azithromycin for now Supplemental oxygen On RA (2) DKA (diabetic ketoacidosis): Code(s): E11.10 - Type 2 diabetes mellitus with ketoacidosis without coma Status: Acute Assessment and Plan: dc insulin infusion. Will discontinue IV fluids in light of overall volume overload and congestive heart failure. Monitor electrolytes. DKA resolved Home Insulin regimen (3) Congestive heart failure: Code(s): I50.9 - Heart failure, unspecified Status: Deleted Assessment and Plan: Bilateral pleural effusion, pulmonary edema, lower extremity edema, elevated BNP are all suggest congestive heart failure Echo ordered DC IV fluids Continue diuretics (4) Community acquired pneumonia: Code(s): J18.9 - Pneumonia, unspecified organism Status: Acute Assessment and Plan: See above (5) Diabetes: Qualifiers: Diabetes mellitus complication status: without complication Diabetes mellitus termite treater insulin use: with termite treater use Diabetes mellitus type: type 2 Qualified Code(s): E11.9 - Type 2 diabetes mellitus without complications; Z79.4 - ferry terminal agent (current) use of insulin Code(s): E11.9 - Type 2 diabetes mellitus without complications Status: Acute Assessment and Plan: Currently in DKA. Management as above Check TSH (6) Pleural effusion: Code(s): J90 - Pleural effusion, not elsewhere classified Status: Acute Assessment and Plan: Thoracentesis performed Continue Diuresis (7) Obstructive sleep apnea: Code(s): G47.33 - Obstructive sleep apnea (adult) (pediatric) Status: Acute Assessment and Plan: NIPPV ordered Subjective Date/time seen: 03/23/24 07:33 Interval history: Patient is currently doing well. Morning lab shows anion gap is closed. Currently in home regimen insulin. Patient is tolerating diet well without any incidence of nausea vomiting or abdominal pain. Denies any fever chills as well. Pending echocardiogram. As mentioned earlier patient has premature family history of CAD. The DKA during admission might be due to the underlying heart disease vs steroid vs infection. Pre preliminary blood culture shows no growth, if continues no growth until tomorrow we will discontinue antibiotic. Pending pleural fluid analysis Review of Systems Review of Systems: All systems reviewed & are unremarkable except as noted in HPI and below (HPI) Exam Narrative: General: Pt is alert awake and in NAD on BiPAP Lungs/Chest: Trachea central Clear BS B/L, bibasilar crackles present, breath sounds are decreased in posterior bases Cardiac: RRR. Normal S1 S2. No murmurs Circulation: Pedal pulses are intact and symmetrical. Abdomen: Normal bowel sounds.. Soft. NT. ND. Extremities: No clubbing, cyanosis Warm bilateral pitting edema present : Smith in place Neurologic: Follows commands. Moves all 4 extremities PERRL AO x3 Skin: No Rash Const: General: comfortable and no acute distress Oth
[2024-03-23 08:14] LABS: Glucose Point of Care 289 mg/dl (65-105)
[2024-03-23] MEDS: FAMOTIDINE 20 MG/2 ML VIAL IV PUSH ×2 (09:40→20:19)
[2024-03-23] MEDS: FUROSEMIDE INJ 40 MG/4 ML VIAL IV PUSH ×2 (09:40→17:10)
[2024-03-23] MEDS: INSULIN ASPART (*BKC) 100 UNITS/ML SUB-Q ×3 (09:41→17:08)
[2024-03-23] MEDS: INSULIN HUMAN ISOPHAN/REGULAR 70/30 (*BKC) 100 UNITS/ML 70 UNITS SUB-Q ×2 (09:41→17:06)
[2024-03-23 11:47] LABS: Glucose Point of Care 289 mg/dl (65-105)
[2024-03-23] MEDS: PERFLUTREN LIPID MICROSPHERES 1.5 ML VIAL DILUTED TO 10 ML TOTAL VOLUME IV PUSH (14:50)
[2024-03-23 16:17] LABS: Glucose Point of Care 208 mg/dl (65-105)
[2024-03-23 22:01] LABS: Glucose Point of Care 156 mg/dl (65-105)
[2024-03-24] VITALS (14 sets, daily range): BP systolic 133–147; BP diastolic 75–78; PULSE 76–98; RESP 18–24; TEMP 36.5–37.1; O2SAT 95–100
[2024-03-24] MEDS: AZITHROMYCIN 500 MG/NS 250 ML 500 MG/250 ML BAG 250 MG IVPB (01:07)
[2024-03-24] MEDS: HEPARIN SODIUM 5,000 UNITS/ML VIAL 5000 UNITS SUB-Q ×3 (05:29→21:42)
[2024-03-24] MEDS: LABETALOL HCL 100 MG TABLET 200 MG PO (05:29)
[2024-03-24 05:48] LABS: Hematocrit 37.5 % (42.0-52.0); Hemoglobin 11.7 g/dL (14.0-18.0); Mean Corpuscular HGB Conc 31.2 g/dl (32-36); Mean Corpuscular Hemoglobin 25.9 pg (26-34); Mean Corpuscular Volume 83.1 fl (80-100); Mean Platelet Volume 12.3 fl (7.4-10.4); Platelet Count Result 239 k/mm3 (150-375); Red Blood Count 4.51 M/mm3 (4.6-6.20); Red Cell Distribution Width 15.8 % (11.5-14.5); White Blood Count 7.5 K/mm3 (4.5-10.0)
[2024-03-24 06:18] LABS: Alanine Aminotransferase 18 U/L (6-50); Albumin Level 3.5 g/dL (3.5-5.1); Alkaline Phosphatase 88 U/L (38-126); Anion Gap 6 mmol/L (4-12); Aspartate Amino Transferase 23 U/L (17-59); Bilirubin,Total 0.9 mg/dL (0.2-1.3); Blood Urea Nitrogen 18 mg/dL (9-20); Calcium 8.7 mg/dL (8.4-10.2); Carbon Dioxide 33 mmol/L (22-30); Chloride 97 mmol/L (98-107); Estimated CRCL calculation 139 ml/min; Estimated Glomerular Filt Rate > 60; Glucose 143 mg/dL (65-110); Phosphorus 5.1 mg/dL (2.5-4.5); Sodium 136 mmol/L (137-145)
[2024-03-24 08:29] LABS: Glucose Point of Care 178 mg/dl (65-105)
[2024-03-24] MEDS: INSULIN HUMAN ISOPHAN/REGULAR 70/30 (*BKC) 100 UNITS/ML 70 UNITS SUB-Q ×2 (08:47→17:28)
[2024-03-24] MEDS: FAMOTIDINE 20 MG/2 ML VIAL IV PUSH ×2 (08:50→21:42)
--- NOTE | 2024-03-24 09:40 | IVDEFINITY ---
Prior to administration of IV Definity the patient was educated on the risks and benefits of the imaging enhancing agent including potential adverse side effects. The patient verbalized understanding. Allergies were verified. No exclusion criteria were identified and at least one of the following inclusion criteria were met: 1) physician request, 2) patient technically difficult to image (per the [place] [employer] of Echocardiography guidelines of two or more segments not discernable within the apical view), or 3) questionable left ventricular function. ?
--- NOTE | 2024-03-24 10:53 | PM.PNCARD ---
Progress Note: A&P Assessment and Plan (1) Acute congestive heart failure: Code(s): I50.9 - Heart failure, unspecified Status: Acute Assessment and Plan: He diuresed well with IV Lasix. Will shift to p.o. Lasix for maintenance. CHF counseling (2) Cardiomyopathy: Code(s): I42.9 - Cardiomyopathy, unspecified Status: Acute Assessment and Plan: Echocardiogram showed EF 25-30%. This is a new diagnosis. Will initiate guideline directed medical therapy in the form of Entresto 24-26 mg b.i.d. and will shift his labetalol to Toprol XL. Titrate as able. We will see how his blood pressure tolerates, then consider adding spironolactone. I talked to him about the concept of sudden cardiac related to his poor systolic function and risk for ventricular arrhythmias. I offered him the option of a LifeVest. He would like to proceed with the LifeVest. Order has placed. Outpatient ischemic evaluation (3) Acute hypoxemic respiratory failure: Code(s): J96.01 - Acute respiratory failure with hypoxia Status: Acute Assessment and Plan: On room air at this point. On antibiotics as well for possible pneumonia. (4) DKA (diabetic ketoacidosis): Code(s): E11.10 - Type 2 diabetes mellitus with ketoacidosis without coma Status: Acute Assessment and Plan: Management per primary team (5) Community acquired pneumonia: Code(s): J18.9 - Pneumonia, unspecified organism Status: Acute Assessment and Plan: On antibiotics for possible pneumonia. (6) Hypertension: Qualifiers: Hypertension type: essential hypertension Qualified Code(s): I10 - Essential (primary) hypertension Code(s): I10 - Essential (primary) hypertension Status: Acute Assessment and Plan: Stable (7) Diabetes: Qualifiers: Diabetes mellitus type: type 2 Diabetes mellitus prison insulin use: with prison use Diabetes mellitus complication status: without complication Qualified Code(s): E11.9 - Type 2 diabetes mellitus without complications; Z79.4 - USP (current) use of insulin Code(s): E11.9 - Type 2 diabetes mellitus without complications Status: Acute Assessment and Plan: Management as per primary team. (8) Obstructive sleep apnea: Code(s): G47.33 - Obstructive sleep apnea (adult) (pediatric) Status: Acute Assessment and Plan: On CPAP at home. Subjective Date/time seen: 03/24/24 10:53 Interval history: Cardiology follow-up for CHF, cardiomyopathy Date of service 03/24/2024: Patient is feeling well this morning and does not have any complaints. He denies any shortness of breath, chest pain, palpitations. His swelling is better. Review of Systems Review of Systems: All systems reviewed & are unremarkable except as noted in HPI and below (HPI) Exam Const: General: comfortable and no acute distress Other: Morbidly obese HENMT: Mouth: Yes moist mucous membranes Eyes: General: appearance normal, both eyes and all related structures Sclera: sclerae normal Resp: Effort & Inspection: normal respiratory effort Cardio: Rate: regular rate Rhythm: regular rhythm Heart sounds: no murmurs Skin: General skin exam: normal color Neuro: Speech: normal speech Extrem: Other: No edema Psych: Mental Status: mental status grossly normal Affect: normal affect Objective Data Vital Signs Vital Signs: Vital Signs - 24 hr 03/23/24 12:00 03/23/24 14:00 03/23/24 17:05 Temperature 36.3 C L Pulse Rate 94 99 98 Respiratory Rate 14 Blood Pressure 142/76 H Pulse Oximetry 97 Oxygen Delivery Fraction of Inspired Oxygen 03/23/24 16:00 03/23/24 19:46 03/23/24 20:23 Temperature 36.4 C Pulse Rate 98 98 98 Respiratory Rate 14 18 Blood Pressure 140/82 Pulse Oximetry 97 97 Oxygen Delivery Room Air Fraction of Inspired Oxygen
[2024-03-24 12:12] LABS: Glucose Point of Care 223 mg/dl (65-105)
[2024-03-24] MEDS: INSULIN ASPART (*BKC) 100 UNITS/ML SUB-Q ×2 (12:17→17:28)
--- NOTE | 2024-03-24 13:19 | PM.IMPN ---
Progress Note: A&P Assessment and Plan (1) Acute hypoxemic respiratory failure: Code(s): J96.01 - Acute respiratory failure with hypoxia Status: Acute Assessment and Plan: Patient presented with shortness of breath and was found to be hypoxic. CT scan IMPRESSION: 1. No pulmonary embolism. 2. Bilateral pleural effusion larger on the right side with adjacent atelectasis. 3. Bilateral groundglass appearing in the upper lobe suggestive of atypical or viral pneumonia. Although patient had elevated WBC he had low procalcitonin level and is afebrile making pneumonia to be a less likely etiology PCR for RSV COVID and flu were negative Bilateral lower extremity edema, elevated BNP, bilateral pleural effusions suggest CHF to be the etiology Discontinue IV fluids and continue diuresis Echo showed EF 25-30% Urine Legionella and pneumococcal antigen, pending Blood cultures still negative Rocephin and azithromycin 2/5 On RA Continue nighttime BiPAP awaiting Lifevest for discharge (2) DKA (diabetic ketoacidosis): Code(s): E11.10 - Type 2 diabetes mellitus with ketoacidosis without coma Status: Acute Assessment and Plan: dc insulin infusion. Will discontinue IV fluids in light of overall volume overload and congestive heart failure. Monitor electrolytes. DKA resolved Home Insulin regimen (3) Congestive heart failure: Code(s): I50.9 - Heart failure, unspecified Status: Deleted Assessment and Plan: Bilateral pleural effusion, pulmonary edema, lower extremity edema, elevated BNP are all suggest congestive heart failure Echo EF 25-30% Continue Lasix 40mg po daily per cards patient awaiting lifevest prior to discharge (4) Community acquired pneumonia: Code(s): J18.9 - Pneumonia, unspecified organism Status: Acute Assessment and Plan: See above (5) Diabetes: Qualifiers: Diabetes mellitus type: type 2 Diabetes mellitus buttermaker insulin use: with buttermaker use Diabetes mellitus complication status: without complication Qualified Code(s): E11.9 - Type 2 diabetes mellitus without complications; Z79.4 - intermediate teacher (current) use of insulin Code(s): E11.9 - Type 2 diabetes mellitus without complications Status: Acute Assessment and Plan: Currently in DKA. Management as above Check TSH (6) Pleural effusion: Code(s): J90 - Pleural effusion, not elsewhere classified Status: Acute Assessment and Plan: Thoracentesis performed, awaiting pleural fluid studies Continue Diuresis (7) Obstructive sleep apnea: Code(s): G47.33 - Obstructive sleep apnea (adult) (pediatric) Status: Acute Assessment and Plan: NIPPV ordered Subjective Date/time seen: 03/24/24 13:19 Interval history: Patient alert and oriented at bedside, on room air cardiology recs noted Review of Systems Review of Systems: All systems reviewed & are unremarkable except as noted in HPI and below (HPI) Exam Narrative: General: Pt is alert awake, on room air Lungs/Chest: Trachea central Clear BS B/L, bibasilar crackles present, breath sounds are decreased in posterior bases Cardiac: RRR. Normal S1 S2. No murmurs Circulation: Pedal pulses are intact and symmetrical. Abdomen: Normal bowel sounds.. Soft. NT. ND. Extremities: No clubbing, cyanosis Warm bilateral pitting edema present : Smith in place Neurologic: Follows commands. Moves all 4 extremities PERRL AO x3 Skin: No Rash Const: General: comfortable and no acute distress Other: A&O x3. Obese. Chaperoned by his and mother Eyes: Pupils: Equal, round and reactive pupils present Neck: Neck: supple Resp: Effort & Inspection: normal respiratory effort Auscultation: no wheezes and diminished lung sounds (At bases) Cardio: Rate: regular rate Rhythm: regular rhythm GI: Other: Protuberant abdomen Neuro: Cranial nerves: Yes Equal, r
--- NOTE | 2024-03-24 14:44 | PC.NURSE ---
On 03/24/24, the student, [Fannie Juarez], provided care and completed [facility] documentation on this patient. I have reviewed the student's documentation and agree with the findings.
[2024-03-24 17:09] LABS: Glucose Point of Care 201 mg/dl (65-105)
[2024-03-24 19:58] LABS: Glucose Point of Care 198 mg/dl (65-105)
[2024-03-24] MEDS: SACUBITRIL/VALSARTAN 24-26 MG TABLET 1 TAB PO (21:41)
[2024-03-25] VITALS (7 sets, daily range): BP systolic 126–130; BP diastolic 70–72; PULSE 78–94; RESP 14–16; TEMP 36.5–36.7; O2SAT 97–100
[2024-03-25] MEDS: AZITHROMYCIN 500 MG/NS 250 ML 500 MG/250 ML BAG 250 MG IVPB (01:02)
[2024-03-25] MEDS: HEPARIN SODIUM 5,000 UNITS/ML VIAL 5000 UNITS SUB-Q ×2 (05:28→13:08)
[2024-03-25 06:37] LABS: Basophils Percent Auto 0.5 % (0.2-1.2); Eosinophils Absolute Auto 0.2 K/mm3 (0-0.3); Eosinophils Percent Auto 2.4 % (0-4.4); Hematocrit 37.8 % (42.0-52.0); Hemoglobin 12.1 g/dL (14.0-18.0); Immature Granulocyte Absolute 0.02 K/mm3 (0.00-0.031); Immature Granulocyte Percent A 0.3 % (0-0.5); Lymphocytes Absolute Auto 2.32 K/mm3 (0.9-3.2); Lymphocytes Percent Auto 30.4 % (18.3-44.2); Mean Corpuscular Hemoglobin 26.5 pg (26-34); Mean Corpuscular Volume 82.7 fl (80-100); Mean Platelet Volume 12.2 fl (7.4-10.4); Monocytes Absolute Auto 0.4 K/mm3 (0.1-0.6); Monocytes Percent Auto 5.4 % (2.6-8.5); Neutrophils Absolute Auto 4.7 K/mm3 (1.3-6.7); Platelet Count Result 247 k/mm3 (150-375); Red Blood Count 4.57 M/mm3 (4.6-6.20); Red Cell Distribution Width 15.6 % (11.5-14.5); White Blood Count 7.6 K/mm3 (4.5-10.0)
[2024-03-25 06:53] LABS: Alanine Aminotransferase 18 U/L (6-50); Albumin Level 3.6 g/dL (3.5-5.1); Alkaline Phosphatase 89 U/L (38-126); Anion Gap 5 mmol/L (4-12); Aspartate Amino Transferase 22 U/L (17-59); Bilirubin,Total 0.9 mg/dL (0.2-1.3); Blood Urea Nitrogen 12 mg/dL (9-20); Calcium 8.9 mg/dL (8.4-10.2); Carbon Dioxide 32 mmol/L (22-30); Chloride 98 mmol/L (98-107); Estimated CRCL calculation 167 ml/min; Estimated Glomerular Filt Rate > 60; Glucose 147 mg/dL (65-110); Magnesium 2.2 mg/dL (1.6-2.3); Phosphorus 3.8 mg/dL (2.5-4.5); Sodium 135 mmol/L (137-145)
[2024-03-25] MEDS: INSULIN HUMAN ISOPHAN/REGULAR 70/30 (*BKC) 100 UNITS/ML 70 UNITS SUB-Q (08:26)
[2024-03-25] MEDS: FAMOTIDINE 20 MG/2 ML VIAL IV PUSH (08:26)
[2024-03-25] MEDS: FUROSEMIDE 40 MG TABLET PO (08:26)
[2024-03-25] MEDS: SACUBITRIL/VALSARTAN 24-26 MG TABLET 1 TAB PO (08:26)
[2024-03-25] MEDS: METOPROLOL SUCCINATE EXT REL 50 MG TABCR PO (08:26)
[2024-03-25 08:28] LABS: Glucose Point of Care 157 mg/dl (65-105)
[2024-03-25 12:06] LABS: Glucose Point of Care 202 mg/dl (65-105)
[2024-03-25] MEDS: INSULIN ASPART (*BKC) 100 UNITS/ML SUB-Q (12:30)
--- NOTE | 2024-03-25 15:15 | PM.IMPN ---
Progress Note: A&P Assessment and Plan (1) Acute hypoxemic respiratory failure: Code(s): J96.01 - Acute respiratory failure with hypoxia Status: Acute Assessment and Plan: Patient presented with shortness of breath and was found to be hypoxic. CT scan IMPRESSION: 1. No pulmonary embolism. 2. Bilateral pleural effusion larger on the right side with adjacent atelectasis. 3. Bilateral groundglass appearing in the upper lobe suggestive of atypical or viral pneumonia. Although patient had elevated WBC he had low procalcitonin level and is afebrile making pneumonia to be a less likely etiology PCR for RSV COVID and flu were negative Bilateral lower extremity edema, elevated BNP, bilateral pleural effusions suggest CHF to be the etiology Discontinue IV fluids and continue diuresis Echo showed EF 25-30% Urine Legionella and pneumococcal antigen, pending Blood cultures still negative Rocephin and azithromycin 2/5 On RA Continue nighttime BiPAP awaiting Lifevest for discharge (2) DKA (diabetic ketoacidosis): Code(s): E11.10 - Type 2 diabetes mellitus with ketoacidosis without coma Status: Acute Assessment and Plan: dc insulin infusion. Will discontinue IV fluids in light of overall volume overload and congestive heart failure. Monitor electrolytes. DKA resolved Home Insulin regimen (3) Congestive heart failure: Code(s): I50.9 - Heart failure, unspecified Status: Deleted Assessment and Plan: Bilateral pleural effusion, pulmonary edema, lower extremity edema, elevated BNP are all suggest congestive heart failure Echo EF 25-30% Continue Lasix 40mg po daily per cards Patient unable to fit into lifevest awaiting final cardiology recs for discharge (4) Community acquired pneumonia: Code(s): J18.9 - Pneumonia, unspecified organism Status: Acute Assessment and Plan: See above (5) Diabetes: Qualifiers: Diabetes mellitus type: type 2 Diabetes mellitus alf insulin use: with alf use Diabetes mellitus complication status: without complication Qualified Code(s): E11.9 - Type 2 diabetes mellitus without complications; Z79.4 - intermodal truck driver (current) use of insulin Code(s): E11.9 - Type 2 diabetes mellitus without complications Status: Acute Assessment and Plan: Currently in DKA. Management as above Check TSH (6) Pleural effusion: Code(s): J90 - Pleural effusion, not elsewhere classified Status: Acute Assessment and Plan: Thoracentesis performed, awaiting pleural fluid studies Continue Diuresis (7) Obstructive sleep apnea: Code(s): G47.33 - Obstructive sleep apnea (adult) (pediatric) Status: Acute Assessment and Plan: NIPPV ordered Plan DVT prophylaxis on Sq heparin Subjective Date/time seen: 03/25/24 15:15 Interval history: Patient alert and oriented at bedside, on room air awaiting final cardiology recs since patient did not fit into a lifevest for discharge Review of Systems Review of Systems: All systems reviewed & are unremarkable except as noted in HPI and below (HPI) Exam Narrative: General: Pt is alert awake, on room air Lungs/Chest: Trachea central Clear BS B/L, bibasilar crackles present, breath sounds are decreased in posterior bases Cardiac: RRR. Normal S1 S2. No murmurs Circulation: Pedal pulses are intact and symmetrical. Abdomen: Normal bowel sounds.. Soft. NT. ND. Extremities: No clubbing, cyanosis Warm bilateral pitting edema present : Smith in place Neurologic: Follows commands. Moves all 4 extremities PERRL AO x3 Skin: No Rash Const: General: comfortable and no acute distress Other: A&O x3. Obese. Chaperoned by his and mother Eyes: Pupils: Equal, round and reactive pupils present Neck: Neck: supple Resp: Effort & Inspection: normal respiratory effort Auscultation: no wheezes and diminished lung sounds (
--- NOTE | 2024-03-25 15:53 | PM.DS ---
DS: Admitting Diagnosis Discharge Date 03/25/24 Admitting Diagnosis SOB DS: Summary Hospital Course Hospital Course: Mr. Almazan is a pleasant 33-year-old male accompanied by his mother and . 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 The patient comes in complaining of progressive shortness of breath for 7 days which became unbearable on day of admission 03/21/2024. The patient carries diagnoses of insulin-dependent diabetes mellitus, morbid obesity, hypertension, MICHAEL compliant with CPAP. About a month prior to admission the patient had shortness of breath and cough. Some family members were positive for COVID. He did use an at home test and it was negative. His symptoms resolved and then 7 days prior to admission he became short of breath again with yellow/brown sputum. It has progressively become worse and he has noticed that he is huffing and puffing after walking short distance. For a long time he has used 2 pillows to sleep and is slightly incline. He is compliant with his CPAP. He has a little bit of leg edema but that has always been the usual for him. He has not noticed a large amount of weight gain in the past 6 months. He is considering bariatric surgery. He denies any illicit drug use, energy drinks, smoking, he rarely uses alcohol only drinks on vacation. ER evaluation demonstrated a BP of 143/55, heart rate of 106, respiratory rate 20. He was placed on non-rebreather and then BiPAP at a setting of 16/8 with FiO2 of 30%. CTA of the chest demonstrated no pulmonary embolism, bilateral ground grass appearing opacities in the upper lobes, bilateral pleural effusions greater on the right side. WBC 13.8, INR 1.0, ABG demonstrated pH is 7.355, PO2 111 on non-rebreather at 15 liters/minute, pCO2 43.6, bicarb 23.8, anion gap 14, glucose 400, serum creatinine 1.0, troponin 0.052-0.040, BNP 1 870, beta hydroxybutyrate 1.10, quad viral screen negative. Apparently the patient was not wheezing however he appeared tight per the ER doctor's exam therefore he was given Solu-Medrol 125 mg IV x1 along with DuoNeb, magnesium 2 g piggyback, Lasix 40 mg IV x1, regular insulin 80 units subQ x1, sodium chloride 1 L bolus, 10 units insulin IV, ceftriaxone 1 g x 1, azithromycin 500 mg. Reportedly the patient had good urine output, his breathing did improve. However on repeat BMP is glucose was 505 with an anion gap increasing to 15 and bicarb dropping from 23 to 17. Patient was initially on BiPAP and monitored in the ICU, he was started on diuresis and Rocephin and Azithromycin. Patient was weaned off biPAP to nasal cannula oxygen and eventually to room air and back to his baseline nighttime BiPAP. ECHO showed EF 25-30% and patient was started on Entresto and lasix weaned to PO 40mg daily, lifevest was recommended however patient was unable to fit into the vest. Discussed with cardiology who noted theere is no other option available other than to continue guideline medical therapy and then outpatient ischemic eval. Patient discharged on GDMT: Entresto, Metoprolol, Lasix 40mg per cardiology. they will continue titrating other guideline therapies outpatient. (1) Acute hypoxemic respiratory failure, resolved : Code(s): J96.01 - Acute respiratory failure with hypoxia Status: Acute Assessment and Plan: Patient presented with shortness of breath and was found to be hypoxic. CT scan IMPRESSION: 1. No pulmonary embolism. 2. Bilateral pleural effusion larger on the right side with adjacent atelectasis. 3. Bilateral groundglass appearing in the upper lobe suggestive of atypical or viral pneumonia. Although patient had elevated WBC he had low procalcitonin level and is afebrile making pneumonia to be a less likely etiology PCR for RSV COVID and flu were negative Bilateral lower extremity edema, elevated BNP, bilateral pleural effusions suggest CHF to be the etiology Discontinue IV fluids and continue diuresis Echo showed E
--- NOTE | 2024-03-25 15:57 | PC.NURSE ---
Spoke with Dr. Santillan via telephone at [phone]. Notified her of cardiac rehab screening and need for referral. She stated they would write the referral when he follows up with them outpatient. Dr. Santillan said cardiology has no furthur recommendations and patient is good for discharge from their standpoint. Hospitalist notified.
[2024-03-26 19:08] LABS: Pneumococcal Antigen Urine NOT DETECTED
[2024-03-26 21:18] LABS: Glucose Pleural Fluid 261 mg/dL
[2024-03-27 02:19] LABS: Legionella pneumophila Ag Ur NOT DETECTED
[2024-03-30 07:33] LABS: Albumin Pleural Fluid 1.1 g/dL; Total Protein Pleural Fluid <3.0 g/dL
== END 2024-03-25 16:30 | disposition home or self-care (01) | DRG 291 ==
LOC: ANHED 03-22 00:08 → ANHICU 03-22 02:41 → ANH2MED 03-22 15:29
PROVIDERS: Emergency Medicine; General Practice; Internal Medicine; Admitting Provider General Practice; Emergency Provider Registered Nurse; PCP Physician Assistant; Visit Provider Internal Medicine
DX: I11.0 Hypertensive heart disease with heart failure (principal); E11.10 Type 2 diabetes mellitus with ketoacidosis without coma; I50.21 Acute systolic (congestive) heart failure; J96.01 Acute respiratory failure with hypoxia; J18.9 Pneumonia, unspecified organism; Z68.43 Body mass index [BMI] 50.0-59.9, adult; E11.9 Type 2 diabetes mellitus without complications; E66.01 Morbid (severe) obesity due to excess calories; Z20.822 Contact with and (suspected) exposure to COVID-19; G47.33 Obstructive sleep apnea (adult) (pediatric); I42.9 Cardiomyopathy, unspecified
CPT/HCPCS: 32555; 36415; 36600; 71045; 71275; 80048; 80053; 81001; 82010; 82042; 82375; 82805; 82810; 82945; 82948; 83036; 83050; 83605; 83615; 83735; 83880; 83986; 84100; 84145; 84157; 84443; 84484; 85025; 85027; 85610; 85730; 87040; 87449; 87637; 87641; 87899; 89051; 93005; 94002; 94003; 94640; 96365; 96366; 96367; 96375; 99285; A9270; C8929; G0378; J0456; J0696; J1644; J1815; J1940; J2919; J3475; J7030; Q9957; Q9967